=== PATIENT | male | born 1985 | race African-American/Black ===

== ENCOUNTER 2016-11-15 15:35 | Emergency (ER) | payer SELFPAY ==
[~2016-11-15] VITALS: Ht 188 cm; Wt 79.4 kg
[2016-11-15 15:43] VITALS: BP 133/70
[2016-11-15] MEDS ORDERED: MOBIC15 M1 PO (16:38)
--- NOTE | 2016-11-15 16:39 | ED GENERAL ADULT ---
History of Present Illness General Chief Complaint: General Adult Stated Complaint: BACK PAIN DIZZINESS HUITRON Source: patient Exam Limitations: no limitations Vital Signs & Intake/Output Vital Signs & Intake/Output Vital Signs Date Time Temp Pulse Resp B/P Pulse O2 O2 Flow FiO2 Ox Delivery Rate 11/15 1543 98.7 77 20 133/70 98 Room Air Room Air Allergies Coded Allergies: No Known Allergies (11/15/16) Triage Note: PT TO ED WITH C/O MID TO UPPER BACK PAIN, PT STATING "I HAVE A WORK RELATED INJURY FROM [place], AND I THINK IT'S JUST ACTING UP, I WORK IN DISTRIBUTION, LIFTING HEAVY BOXES". Triage Nurses Notes Reviewed? yes Onset: Gradual Duration: day(s): (2) Timing: recent history Injury Environment: home Severity: moderate Severity Numbers: 6 Modifying Factors: Worsens With: movement. HPI: Patient is a 31-year-old male presenting to the emergency department with chief complaint of upper back pain that has been goingon for the past 2 days. He reports it feels tight in nature worse with any type of movement or reaching. History of similar pain 6 months ago with an injury at work. 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 Denies any weakness. Denies any shortness of breath chest pain or palpitations. Has been using ibuprofen with no relief. He also reports that he woke up dizzy smarting but that has resolved. Denies any congestion, ear pain, sore throat. Denies any fevers or chills. Not currently dizzy. He also reports that he had a mild headache when he woke up without resolved as well. He is eating and drinking without difficulty. (STORM RIVERA) Reconcile Medications Meloxicam (Mobic) 15 MG TABLET 1 TAB PO DAILY PRN pain (KELLIE MAURICE,DEVENDRA) Past History Travel History Traveled to [place] past 21 day No Medical History Any Pertinent Medical History? see below for history Neurological: NONE EENT: NONE Cardiovascular: NONE Respiratory: NONE Gastrointestinal: NONE Hepatic: NONE Renal: NONE Musculoskeletal: disk herniation Psychiatric: NONE Endocrine: NONE Blood Disorders: NONE Cancer(s): NONE Surgical History Surgical History: non-contributory Psychosocial History What is your primary language Arabic Tobacco Use: Current Not Daily ETOH Use: denies use Illicit Drug Use: denies illicit drug use Family History Hx Contributory? No (STORM RIVERA) Review of Systems Review of Systems Constitutional: Reports: no symptoms. Comments Review of systems: See HPI, All other systems negative. Constitutional, no chills fever or weight loss HEENT: No visual changes no sore throat no congestion Cardiovascular: No chest pain ,palpitation Skin, no jaundice no rashes Respiratory: No dyspnea cough sputum or hemoptysis GI: No nausea no vomiting : No dysuria No hematuria Muscle skeletal: no neck pain, Neurologic: No numbness no confusion Psych: No stress anxiety Immunology: No splenectomy or history of AIDS (STORM RIVERA) Physical Exam Physical Exam General Appearance: well developed/nourished, no apparent distress, alert, awake , comfortable Comments: Well-developed well-nourished person in no acute distress HEENT: Normal EENT exam, extraocular motion intact, no nystagmus. Pupils equally round and reactive to light and accommodation. Nose is atraumatic. External auditory canal and Tympanic membranes clear. Pharynx normal. No swelling or edema. Neck: Supple, no lymphadenopathy, normal range of motion without pain or tenderness Back: Negative straight leg raise bilaterally. Tender to palpation over the thoracic paraspinal muscles Positive muscle spasm. Limited range of motion secondary to pain. Cardiovascular: Regular rate and rhythms no murmurs rubs or gallops, normal JVP Respiratory: Chest nontender. No respiratory distress.breath sounds clear to auscultation bilaterally Extremity: No edema, no calf tenderness to palpation, normal and equal pulses. Muscular strength is 5 out of 5 in all extremity. Horse Show Judge strength is equal and symmetric bilaterally. Neuro: Alert oriented x3, cranial 2 through 12 grossly intact. Cerebellar testing unremarkable. Skin: No appreciable rash on exposed skin, skin is warm and dry. Psych: Mood and affect is normal, memory and judgment is normal. Core Measures ACS in differential dx? No CVA/TIA Diagnosis: No Severe Sepsis Present: No Septic Shock Present: No (STORM RIVERA) Progress Differential Diagnoses I considered the following diagnoses in my evaluation of the patient: Muscle spasm, contusion, viral syndrome, dehydration, herniated disc Plan of Care: Patient declined pain medication . He would like a work note for today and tomorrow. He will follow-up with his PCP. Etiology of dizziness is unclear at this time although patient does not have current dizziness. Exam is benign. No focal deficits. Initial ED EKG: none (STORM RIVERA) Departure Departure Time of Disposition: 1635 Disposition: HOME OR SELF CARE Condition: Stable Clinical Impression Primary Impression: Back pain Qualifiers: Back pain location: thoracic back pain Chronicity: chronic Back pain laterality: bilateral Qualified Codes: M54.6 - Pain in thoracic spine; G89.29 - Other chronic pain Referrals: PATIENT HAS NO PRIMARY CARE DR (PCP/Family) Additional Instructions: Follow-up with your primary care physician call to make appointment. Increase fluids. Apply warm compresses to area. Take mobic as prescribed to help with pain. Departure Forms: Customer Survey General Discharge Information Prescriptions: Current Visit Scripts Meloxicam (Mobic) 1 TAB PO DAILY PRN pain #15 TAB (STORM RIVERA) PA/TECHNOLOGY TRAINER Co-Sign Statement Statement: ED Attending supervision documentation- [] I saw and evaluated the patient. I have also reviewed all the pertinent lab results and diagnostic results. I agree with the findings and the plan of care as documented in the PA's/TECHNOLOGY TRAINER's documentation. [X] I have reviewed the ED Record and agree with the PA's/TECHNOLOGY TRAINER's documentation. [] Additions or exceptions (if any) to the PAs/TECHNOLOGY TRAINER's note and plan are summarized below: [] (KELLIE MAURICE,DEVENDRA) Critical Care Note Critical Care Note Critical Care Time: non-applicable (STORM RIVERA)
== END 2016-11-15 16:48 ==
LOC: ERH 15:35
DX: M54.6 Pain in thoracic spine (principal)